=== PATIENT | female | born 1940 | race Asian ===

== ENCOUNTER 2018-06-10 19:31 | Emergency (ER) | payer OTHER, MEDICAID ==
[~2018-06-10] VITALS: Ht 157.5 cm; Wt 45.4 kg
[2018-06-10 20:43] LABS: BASOPHIL % 0.2 % (0-2); PLATELET COUNT 148 x10^3mcL (130-400); RED CELL DISTRIBUTION WIDTH 14.4 % (11.5-14.5)
[2018-06-10 20:56] LABS: ALKALINE PHOSPHATASE 58 U/L (46-116); ALT/SGPT 78 U/L (14-59); AST/SGOT 175 U/L (15-37); CALCIUM 9.2 mg/dL (8.5-10.1); CHLORIDE SERUM 104 mmol/L (98-107); CREATININE SERUM 2.8 mg/dL (0.6-1.0); GLUCOSE SERUM 132 mg/dL (74-106); MAGNESIUM 2.7 mg/dL (1.8-2.4); SODIUM SERUM 137 mmol/L (136-145); TOTAL PROTEIN, SERUM 6.6 g/dL (6.4-8.2)
[2018-06-10 21:00] LABS: ALBUMIN 3.2 g/dL (3.4-5.0)
[2018-06-10 21:01] LABS: POTASSIUM SERUM 6.8 mmol/L (3.5-5.1)
== END 2018-06-10 23:39 | disposition expired ==
LOC: ED 19:31
PROVIDERS: Emergency Medicine
DX: I46.9 Cardiac arrest, cause unspecified (principal); I10 Essential (primary) hypertension; E11.9 Type 2 diabetes mellitus without complications; F03.90 Unspecified dementia, unspecified severity, without behavioral disturbance, psychotic disturbance, mood disturbance, and anxiety
CPT/HCPCS: 36600; J7030; Q0092